=== PATIENT | male | born 1985 | race Caucasian/White ===

== ENCOUNTER 2024-07-19 12:45 | Outpatient (RCR) | payer BC, SELFPAY ==
[2024-07-19 13:01] VITALS: BMI 39.0
[2024-07-19 13:02] VITALS: BP 130/86; PULSE 68; TEMP 36.7
--- NOTE | 2024-07-19 13:49 | PC.ADMIT ---
Patient is a 39 year old male who was referred to [facility] by his prescriber d/t severe anxiety and depression. Patient has been on a medical leave from work for the past 10 weeks d/t mental health symptoms. Patient reports work stress stating there have been a lot of work changes. Ruminating about work and what could go wrong. Stated he has social anxiety and when he is around a lot of people he gets increasingly anxious. Patient has been experiencing panic attacks with the following symptoms, SOB, muscle tension, increased heart rate, and diaphoresis. In addition, patient reports financial stresses. Patient stated his and sister are supportive. Patient is alert and oriented x4. Calm and cooperative. Thoughts are clear and logical. He presented with depressed mood and anxious affect. Denied SI, no HI. He was given a copy of his safety plan if needed. Patient using a gram of marijuana daily every night. Medications reconciled with patient and patient's pharmacy. He reports taking medications as prescribed.
--- NOTE | 2024-07-19 15:54 | HO.PHP ---
Client's case has been opened and reviewed in team.
--- NOTE | 2024-07-20 08:21 | HO.PHP ---
PHP staff member received a phone call from Joseph noting that he would like to discharge from the program because of his social anxiety. Joseph doesn't feel at this time the group settings are a good fit for him. [facility] staff member assessed any safety concerns at discharge, in which none were reported. Joseph stated he is safe and has no SI, plan or intent. [facility] staff member provided resources to an OP provider that he can work with one on one. Joseph sounded receptive.
== END 2024-07-19 23:59 | disposition home or self-care (01) ==
LOC: HO.PHPA 12:45
PROVIDERS: Visit Provider Psychiatry & Neurology Psychiatry
DX: F33.1 Major depressive disorder, recurrent, moderate (principal); F41.1 Generalized anxiety disorder
CPT/HCPCS: 90791; 90853